=== PATIENT | male | born 1955 | race Two or more races ===

== ENCOUNTER 2017-02-06 17:22 | Inpatient (IN) | payer OTHER ==
[~2017-02-06] VITALS: Ht 175.3 cm; Wt 85.6 kg
[~2017-02-06 17:22] MED LIST: OMEP20CA16 PO; TAMS0.4C2 PO
[2017-02-06] MEDS ORDERED: ZOLPIDEM 5 MG TAB PO PRN (20:00)
[2017-02-06] MEDS ORDERED: NITROGLYCERIN (SL) 0.4 MG TAB SL PRN (20:00)
[2017-02-06 20:06] VITALS: PULSE 65
[2017-02-06 21:22] VITALS: Ht 175.3 cm; Wt 85.6 kg
[2017-02-06 23:54] VITALS: BP 107/67; RESP 18
[2017-02-07] VITALS (11 sets, daily range): BP systolic 89–106; BP diastolic 49–66; PULSE 60–65; RESP 18–20
[2017-02-07 07:06] LABS: CHOL/HDL RATIO 4.5 RATIO; CHOLESTEROL 158 mg/dl (100-200); HDL CHOLESTEROL 35 mg/dl (30-78); TRIGLYCERIDES 156 mg/dl (0-149)
[2017-02-07 07:19] LABS: TROPONIN-I < 0.012 ng/ml (0.00-0.12)
[2017-02-07 07:35] LABS: THYROID STIMULATING HORMONE 0.832 MIU/L (0.465-4.680)
[2017-02-07] MEDS: ENOXAPARIN 40 MG/0.4 ML SYG SC SCH (09:51)
--- NOTE | 2017-02-07 17:15 | HP ---
Date/Time of Note Date/Time of Note DATE: 02/07/17 TIME: 17:13 Assessment/Plan VTE Prophylaxis VTE Prophylaxis Intervention: LMWH Lines/Catheters IV Catheter Type (from [facility]): Saline Lock Urinary Cath still in place: No Assessment/Plan Assessment/Plan - Chest pain, assess for acute coronary syndrome. - per cardiology - FU troponins x3 - ECHO- result pending -telemetry monitoring - Episode of dizziness- none at present - Hypotension, borderline.- cont to monitor - Smoker -Smoking cessation - History of dyslipidemia. - Atorvastatin 20 mg po qhs - Benign prostatic hypertrophy. - sp right eye cataract sx 2014- no acute issues Furhet recommendations depend upon patient's clinical course,DW Dr VILLARREAL/ staff/daughter HPI/ROS Admit Date/Time Admit Date/Time February 06, 2017 at 19:32 Hx of Present Illness This patient, Mr. Romo is a 61-year-old male with a history of dyslipidemia , BPH and gastritis, who presents with complaints of substernal chest pain and dizziness after working out in a gym yesterday.The patient denies chest pain, shortness of breath, dizziness, fever, chills, abdominal pain. NVD. at this time. The patient denies any Hx myocardial infarction or CVA. Daughter at bed side- all Qs snswered ROS Constitutional: improved Eyes: no complaints ENT: no complaints Respiratory: no complaints Cardiovascular: no complaints Gastrointestinal: no complaints Genitourinary: no complaints PMH/Family/Social Past Medical History ALLERGIES: NO KNOWN DRUG ALLERGIES. Medical History: high cholesterol Family History Significant Family History: no pertinent family hx Social History Smoking Status: Current every day smoker Drug Use: none Exam/Review of Systems Vital Signs Vitals Vital Signs Date Time Temp Pulse Resp B/P Pulse Ox O2 Delivery O2 Flow Rate FiO2 02/07/17 16:12 63 02/07/17 16:08 98.0 18 96/66 98 Exam Constitutional: alert, oriented Psych: nl mood/affect Head: atraumatic Eyes: EOMI, nl sclera ENMT: nl external ears & nose Neck: supple Respiratory: clear to auscultation Cardiovascular: regular rate and rhythm Gastrointestinal: non-tender, soft Musculoskeletal: nl extremities to inspection Extremities: normal pulses Neurological: nl mental status, nl speech Skin: nl turgor Lymph: nontender Medications Medications Current Medications Acetaminophen (Tylenol Tab) 650 mg Q6H PRN PO PAIN AND OR ELEVATED TEMP; Start 02/06/17 at 20:00 Nitroglycerin (Nitroglycerin (Sl Tab) 0.4 Mg) 1 tab Q5M PRN SL ANGINA; Start at 20:00 Enoxaparin Sodium (Lovenox) 40 mg DAILY SC Last administered on 02/07/17 09:51 ; Admin Dose 40 MG; Start 02/07/17 at 09:00 Zolpidem Tartrate (Ambien) 5 mg HS PRN PO INSOMNIA; Start 02/06/17 at 20:00 SUSIE DAHL February 07, 2017 17:15 Acetaminophen (Tylenol Tab) 650 mg Q6H PRN PO PAIN AND OR ELEVATED TEMP; Start 02/06/17 at 20:00 Nitroglycerin (Nitroglycerin (Sl Tab) 0.4 Mg) 1 tab Q5M PRN SL ANGINA; Start at 20:00 Enoxaparin Sodium (Lovenox) 40 mg DAILY SC Last administered on 02/07/17 09:51 ; Admin Dose 40 MG; Start 02/07/17 at 09:00 Zolpidem Tartrate (Ambien) 5 mg HS PRN PO INSOMNIA; Start 02/06/17 at 20:00 SUSIE DAHL February 07, 2017 17:15
[2017-02-07] MEDS ORDERED: ONDANSETRON 4 MG INJ IV PRN (17:30)
--- NOTE | 2017-02-07 21:29 | RADRPT ---
Vent Rate: 59 bpm RR Interval: 0 msec [place] Interval: 168 msec QRS Duration: 106 msec QT Interval: 418 msec QTC Interval: 413 msec P-R-T [place]: 62 - 89 - 49 degrees Sinus bradycardia Incomplete right bundle branch block Borderline ECG Electronically Signed By: Rachid Valdes [id number]
--- NOTE | 2017-02-07 23:37 | CONS ---
DATE OF ADMISSION: 02/06/2017 DATE OF CONSULTATION: 02/07/2017 REASON FOR CONSULTATION: Chest pain, assess for acute coronary syndrome. REQUESTING PHYSICIAN: Jesse Pascual MD HISTORY OF PRESENT ILLNESS: Mr. Romo is a 61-year-old male with a history of dyslipidemia, BPH and gastritis, who presents with complaints of substernal chest pain and dizziness after working out . Initially upon arrival, temperature of 98, blood pressure 107/67, pulse 64, respiratory rate 18, saturation 97%. The patient's labs revealed a negative troponin, LDL of 92, HDL of 35. TSH 0.8. T he patient's electrocardiogram revealed sinus bradycardia at 59, normal axis, normal intervals, inco mplete right bundle branch block. The patient has been admitted to the floor, and since admitted to the floor he has had a second troponin return negative, for 2 negative troponins. The patient den ies ongoing chest pain at this time. The patient denies prior myocardial infarction or CVA. PAST MEDICAL HISTORY: As above in HPI. CURRENT MEDICATIONS: 1. Flomax 0.4 mg daily. 2. Sublingual nitroglycerin p.r.n. 3. Zofran p.r.n. 4. Lovenox 40 mg subQ daily. 5. Ambien p.r.n. ALLERGIES: NO KNOWN DRUG ALLERGIES. SOCIAL HISTORY: Positive tobacco. No ETOH or illicit drug use. FAMILY HISTORY: No history of sudden cardiac or early CAD. REVIEW OF SYSTEMS: As above in HPI. CONSTITUTIONAL: No fevers, chills. PULMONARY: Shortness of breath. CARDIOVASCULAR: Intermittent chest pain. GASTROINTESTINAL: No vomiting. GENITOURINARY: No hematuria. MUSCULOSKELETAL: Degenerative joint disease. PSYCHIATRIC: The patient denies depression. NEUROLOGIC: No documented history of CVA. ENDOCRINE: No documented history of diabetes mellitus. PHYSICAL EXAMINATION: VITAL SIGNS: Temperature of 98, blood pressure 94/59, pulse 64, respiratory rate 20, saturation 96% . GENERAL: The patient is alert, awake, in no acute distress. NECK: JVP approximately water. CHEST: Fair air movement throughout. HEART: Regular rate and rhythm. Normal S1, S2, I/ systolic murmur, nondisplaced PMI. ABDOMEN: Positive bowel sounds, soft. EXTREMITIES: No edema, 1+ pulses bilaterally, posterior tibial. LABORATORY DATA: As above in HPI. No further labs for my review at this time. IMAGING STUDIES: As above in HPI. No further imaging studies for my review at this time. ECG: As above in HPI. No further electrocardiograms for my review at this time. IMPRESSION: 1. Chest pain, assess for acute coronary syndrome. 2. Abnormal electrocardiogram, assess for acute coronary syndrome. 3. Hypotension, borderline. 4. History of dyslipidemia. 5. Ongoing tobacco usage. 6. Episode of dizziness. 7. Benign prostatic hypertrophy. RECOMMENDATIONS: 1. At this time would maintain the patient on telemetry monitoring to follow rhythm and rate contro l closely. 2. Would complete the patient's rule out for myocardial infarction, send final troponin. 3. We will follow the patient's 2D echo done for assessment of ejection fraction, wall motion and a ny major valve abnormalities. 4. Would resume the patient's baseline likely low dose statin therapy. 5. If the patient does rule out for myocardial infarction, I believe given this patient's presentat ion, that he will further benefit from inpatient risk stratification with cardiac stress test which thus can be scheduled to take place first thing in the morning. 6. Continue to follow the patient's blood pressure closely with possible need for any IV fluid hydr ation and/or pressors. Thank you for allowing me to take part in the care of this patient. I will continue to follow along very closely with you. Further recommendations will be made as the patient progresses through his inpatient hospital clinical course. Dictated By: KIMBERLY MIRELES/LALA Conf#: [id number] DID#: [id number] CC: JESSE PASCUAL MD;*End*
[2017-02-08] VITALS (13 sets, daily range): BP systolic 90–119; BP diastolic 50–69; PULSE 60–75; RESP 17–20
--- NOTE | 2017-02-08 06:34 | RADRPT ---
PROCEDURE: XR Chest. CLINICAL INDICATION: Cardiomyopathy TECHNIQUE: PA and lateral views of the chest were obtained. COMPARISON: None. FINDINGS: The lungs are hyperinflated. No focal airspace opacification, pleural effusion or pneumothorax is s een. The cardiomediastinal silhouette is within normal limits for size. There is a rounded right pa raspinal density near the diaphragm. The osseous structures are unremarkable. IMPRESSION: 1. Hyperinflation of the lungs. No radiographic evidence of acute cardiopulmonary disease. 2. Rounded right paraspinal density at the level of the diaphragm. This is not further localized o n the lateral view. Consider CT of the chest for further evaluation. RPTAT: HH .Chana Rueda MD, MD Date Time Electronically viewed and signed by .Chana Rueda MD, on 02/08/2017 06:33 .G/
[2017-02-08 07:24] LABS: ADD SCAN DIFF NO
[2017-02-08 07:53] LABS: IRON 78 ug/dl (35-150)
[2017-02-08 07:58] LABS: ALBUMIN 3.9 g/dl (3.3-4.9); ALBUMIN/GLOBULIN RATIO 1.18; BILIRUBIN,INDIRECT 0.4 mg/dl (0-1.1); BILIRUBIN,TOTAL 0.4 mg/dl (0.2-1.3); CHOL/HDL RATIO 4.4 RATIO; CREATININE 1.09 mg/dl (0.61-1.24); POTASSIUM 4.5 mmol/L (3.5-5.1); TOTAL PROTEIN 7.2 g/dl (6.1-8.1)
[2017-02-08 08:02] LABS: TOTAL IRON BINDING CAPACITY 337 ug/dl (241-421)
[2017-02-08 08:26] LABS: THYROID STIMULATING HORMONE 1.85 MIU/L (0.465-4.680)
[2017-02-08] MEDS: TAMSULOSIN (SR) 0.4 MG CAP PO SCH (09:25)
[2017-02-08] MEDS: ENOXAPARIN 40 MG/0.4 ML SYG SC SCH (09:26)
[2017-02-08 10:07] LABS: BASOPHILS % 0.5 % (0.0-2.0); EOSINOPHILS # 0.4 10^3/ul (0.0-0.5); EOSINOPHILS % 5.1 % (0.0-7.0); HEMOGLOBIN 14.9 g/dl (14.0-18.0); LYMPHOCYTES # 2.4 10^3/ul (0.8-2.9); LYMPHOCYTES % 27.8 % (15.0-51.0); MEAN CORPUSCULAR HEMOGLOBIN 32.7 pg (29.0-33.0); MEAN CORPUSCULAR HGB CONC 34.7 g/dl (32.0-37.0); MEAN CORPUSCULAR VOLUME 94.5 fl (82.0-101.0); MEAN PLATELET VOLUME 9.9 fl (7.4-10.4); MONOCYTE # 0.8 10^3/ul (0.3-0.9); MONOCYTES % 9.7 % (0.0-11.0); NEUTROPHIL # 4.8 10^3/ul (1.6-7.5); NEUTROPHILS % 56.2 % (39.0-77.0); PLATELET COUNT 289 10^3/UL (140-415); RED BLOOD COUNT 4.55 10^6/ul (4.70-6.10); RED CELL DISTRIBUTION WIDTH 13.2 % (11.5-14.5); WHITE BLOOD COUNT 8.6 10^3/ul (4.8-10.8)
[2017-02-08] MEDS ORDERED: REGADENOSON 0.4 MG/5 ML SYG ONE (10:33)
--- NOTE | 2017-02-08 11:41 | CONS ---
Date/Time of Note Date/Time of Note DATE: 02/08/17 TIME: 11:36 Assessment/Plan Assessment/Plan Chief Complaint/Hosp Course IMPRESSION: 1. Chest pain, assess for acute coronary syndrome.-negative trop x 3 2. Abnormal electrocardiogram, assess for acute coronary syndrome. 3. Hypotension, borderline. 4. History of dyslipidemia. 5. Ongoing tobacco usage. 6. Episode of dizziness. 7. Benign prostatic hypertrophy. Recc: -Tele -serial ecg's -Continue statin -PRN SL NTG -Lexiscan stress test today Problems: Consultation Date/Type/Reason Admit Date/Time February 06, 2017 at 19:32 Initial Consult Date 02/07/2017 Type of Consultation: Cardiology Reason for Consultation Chest pain Referring Provider: MARJAN ESPINOZA MD Exam/Review of Systems Vital Signs Vitals Vital Signs Date Time Temp Pulse Resp B/P Pulse Ox O2 Delivery O2 Flow Rate FiO2 02/08/17 08:00 60 02/08/17 07:16 97.8 17 104/69 95 02/08/17 04:39 Room Air Intake and Output 02/07/17 02/07/17 02/08/17 15:00 23:00 07:00 Intake Total 250 ml 900 ml 300 ml Balance 250 ml 900 ml 300 ml Exam Review of Systems: CONSTITUTIONAL: No fevers, chills. PULMONARY: No sob CARDIOVASCULAR: No chest pain/palpitations GASTROINTESTINAL: No nausea/vomiting. GENITOURINARY: No hematuria/dysuria. MUSCULOSKELETAL: No myagias/arthalgias. PSYCHIATRIC: The patient denies depression. NEUROLOGIC: No weakness Constitutional: alert Psych: no complaints Head: normocephalic ENMT: mucosa pink and moist Neck: jvd (9 cm water), supple Respiratory: clear to auscultation Cardiovascular: regular rate and rhythm Gastrointestinal: non-tender, soft Musculoskeletal: muscle tone (normal) Extremities: edema (none) Neurological: other (No focal deficits) Results Result Diagram: 02/08/17 0631 02/08/17 0631 Results 24 hrs Laboratory Tests Test 02/07/17 18:13 02/08/17 00:45 02/08/17 06:31 02/08/17 06:58 Troponin I < 0.012 < 0.012 < 0.012 White Blood Count 8.6 Red Blood Count 4.55 L Hemoglobin 14.9 Hematocrit 43.0 Mean Corpuscular Volume 94.5 Mean Corpuscular Hemoglobin 32.7 Mean Corpuscular Hemoglobin Concent 34.7 Red Cell Distribution Width 13.2 Platelet Count 289 Mean Platelet Volume 9.9 Neutrophils % 56.2 Lymphocytes % 27.8 Monocytes % 9.7 Eosinophils % 5.1 Basophils % 0.5 Nucleated Red Blood Cells % 0.0 Neutrophils # 4.8 Lymphocytes # 2.4 Monocytes # 0.8 Eosinophils # 0.4 Basophils # 0.0 Nucleated Red Blood Cells # 0.0 Sodium Level 136 Potassium Level 4.5 Chloride Level 105 Carbon Dioxide Level 26 Anion Gap 10 Blood Urea Nitrogen 22 H Creatinine 1.09 Glucose Level 102 Calcium Level 9.0 Phosphorus Level 4.0 Magnesium Level 2.0 Total Bilirubin 0.4 Direct Bilirubin 0.00 Indirect Bilirubin 0.4 Aspartate Amino Transf (AST/SGOT) 29 Alanine Aminotransferase (ALT/SGPT) 36 Alkaline Phosphatase 80 Total Protein 7.2 Albumin 3.9 Globulin 3.30 H Albumin/Globulin Ratio 1.18 Triglycerides Level 112 Cholesterol Level 179 LDL Cholesterol, Calculated 117 HDL Cholesterol 40 Cholesterol/HDL Ratio 4.4 Thyroid Stimulating Hormone (TSH) 1.850 Hemoglobin A1c 5.9 Iron Level 78 Total Iron Binding Capacity 337 Percent Iron Saturation 23 Medications Medications Current Medications Acetaminophen (Tylenol Tab) 650 mg Q6H PRN PO PAIN AND OR ELEVATED TEMP; Start 02/06/17 at 20:00 Nitroglycerin (Nitroglycerin (Sl Tab) 0.4 Mg) 1 tab Q5M PRN SL ANGINA; Start at 20:00 Enoxaparin Sodium (Lovenox) 40 mg DAILY SC Last administered on 02/08/17 09:26 ; Admin Dose 40 MG; Start 02/07/17 at 09:00 Zolpidem Tartrate (Ambien) 5 mg HS PRN PO INSOMNIA; Start 02/06/17 at 20:00 Tamsulosin HCl (Flomax) 0.4 mg DAILY PO Last administered on 02/08/17 09:25; Admin Dose 0.4 MG; Start 02/08/17 at 09:00 Ondansetron HCl (Zofran Inj) 4 mg Q4H PRN IV NAUSEA AND/OR VOMITING; Start at 17:30 Atorvastatin Calcium (Lipitor) 20 mg HS PO ; Start 02/08/17 at 21:00 KIMBERLY CHEUNG February 08, 2017 11:40
--- NOTE | 2017-02-08 12:35 | PN ---
Date/Time of Note Date/Time of Note DATE: 02/08/17 TIME: 12:33 Assessment/Plan VTE Prophylaxis VTE Prophylaxis Intervention: SCD's Lines/Catheters IV [facility] Saline Lock Urinary Cath still in place: No Assessment/Plan Assessment/Plan 1. Chest pain, assess for acute coronary syndrome.-negative trop x 3 2. Abnormal electrocardiogram, assess for acute coronary syndrome. 3. Hypotension, borderline. 4. History of dyslipidemia. 5. Ongoing tobacco usage. 6. Episode of dizziness. 7. Benign prostatic hypertrophy. Subjective 24 Hr Interval Summary Free Text/Dictation Pt went to nuclear medicine for stress test, no acute events reported prior to procedure. Exam/Review of Systems Vital Signs Vitals Vital Signs Date Time Temp Pulse Resp B/P Pulse Ox O2 Delivery O2 Flow Rate FiO2 02/08/17 08:00 60 02/08/17 07:16 97.8 17 104/69 95 02/08/17 04:39 Room Air Intake and Output 02/07/17 02/07/17 02/08/17 15:00 23:00 07:00 Intake Total 250 ml 900 ml 300 ml Balance 250 ml 900 ml 300 ml Results Result Diagram: 02/08/17 0631 02/08/17 0631 Results 24 hrs Laboratory Tests Test 02/07/17 18:13 02/08/17 00:45 02/08/17 06:31 02/08/17 06:58 Troponin I < 0.012 < 0.012 < 0.012 White Blood Count 8.6 Red Blood Count 4.55 L Hemoglobin 14.9 Hematocrit 43.0 Mean Corpuscular Volume 94.5 Mean Corpuscular Hemoglobin 32.7 Mean Corpuscular Hemoglobin Concent 34.7 Red Cell Distribution Width 13.2 Platelet Count 289 Mean Platelet Volume 9.9 Neutrophils % 56.2 Lymphocytes % 27.8 Monocytes % 9.7 Eosinophils % 5.1 Basophils % 0.5 Nucleated Red Blood Cells % 0.0 Neutrophils # 4.8 Lymphocytes # 2.4 Monocytes # 0.8 Eosinophils # 0.4 Basophils # 0.0 Nucleated Red Blood Cells # 0.0 Sodium Level 136 Potassium Level 4.5 Chloride Level 105 Carbon Dioxide Level 26 Anion Gap 10 Blood Urea Nitrogen 22 H Creatinine 1.09 Glucose Level 102 Calcium Level 9.0 Phosphorus Level 4.0 Magnesium Level 2.0 Total Bilirubin 0.4 Direct Bilirubin 0.00 Indirect Bilirubin 0.4 Aspartate Amino Transf (AST/SGOT) 29 Alanine Aminotransferase (ALT/SGPT) 36 Alkaline Phosphatase 80 Total Protein 7.2 Albumin 3.9 Globulin 3.30 H Albumin/Globulin Ratio 1.18 Triglycerides Level 112 Cholesterol Level 179 LDL Cholesterol, Calculated 117 HDL Cholesterol 40 Cholesterol/HDL Ratio 4.4 Thyroid Stimulating Hormone (TSH) 1.850 Hemoglobin A1c 5.9 Iron Level 78 Total Iron Binding Capacity 337 Percent Iron Saturation 23 Medications Medications Current Medications Acetaminophen (Tylenol Tab) 650 mg Q6H PRN PO PAIN AND OR ELEVATED TEMP; Start 02/06/17 at 20:00 Nitroglycerin (Nitroglycerin (Sl Tab) 0.4 Mg) 1 tab Q5M PRN SL ANGINA; Start at 20:00 Enoxaparin Sodium (Lovenox) 40 mg DAILY SC Last administered on 02/08/17 09:26 ; Admin Dose 40 MG; Start 02/07/17 at 09:00 Zolpidem Tartrate (Ambien) 5 mg HS PRN PO INSOMNIA; Start 02/06/17 at 20:00 Tamsulosin HCl (Flomax) 0.4 mg DAILY PO Last administered on 02/08/17 09:25; Admin Dose 0.4 MG; Start 02/08/17 at 09:00 Ondansetron HCl (Zofran Inj) 4 mg Q4H PRN IV NAUSEA AND/OR VOMITING; Start at 17:30 Atorvastatin Calcium (Lipitor) 20 mg HS PO ; Start 02/08/17 at 21:00 SEYMOUR NORRIS February 08, 2017 12:35
--- NOTE | 2017-02-08 12:41 | CARRPT ---
DATE OF PROCEDURE: 02/08/2017 PROCEDURE: Lexiscan Cardiolite stress test. REASON FOR STRESS TESTING: Chest pain, assess for ischemia. BASELINE VITAL SIGNS AND ELECTROCARDIOGRAM: Pulse 68, blood pressure 110/69. Electrocardiogram rev eals sinus bradycardia, rate 56 with an incomplete right bundle branch block, secondary repolarizati on abnormalities. PROCEDURE: The patient underwent standard Lexiscan infusion protocol over 10 seconds followed by ra diolabel tracer. The patient's test was stopped due to completion of protocol. Maximal achieved bl ood pressure during the test 113/65. Maximal heart rate during the test 73. ELECTROCARDIOGRAM FINDINGS: The patient did not develop any new Lexiscan-induced ST or T-wave roldan es from baseline abnormalities. No documented PVCs. SYMPTOMS: The patient had slight chest pain and shortness of breath during stress test that resolve d in recovery. IMPRESSION: 1. No Lexiscan-induced ST or T-wave changes from baseline abnormalities or diagnostic cardiac ische shelbi. 2. Complaints of chest pain and shortness of breath, which resolved in recovery. 3. No documented premature ventricular contractions during stress test. 4. Report of nuclear images to follow in separate dictation. Dictated By: KIMBERLY MIRELES/LALA Conf#: [id number] DID#: [id number] CC: MARJAN ESPINOZA MD;*EndCC*
--- NOTE | 2017-02-08 17:04 | RADRPT ---
PROCEDURE: Nuclear medicine myocardial perfusion scan CLINICAL INDICATION: Chest pain TECHNIQUE: 30.9 mCi of technetium 99m Cardiolite was administered for the stress study. 10.7 mCi of technetium 99m Cardiolite was administered for the resting study. The patient was stressed with 0 .4 mg of Lexiscan. Images were reviewed in the short axis, vertical long axis, and horizontal long axis views. Wall motion was assessed and ejection fraction was calculated as well. Images were revi ewed on a high-resolution PACS workstation. COMPARISON: None available FINDINGS: Left ventricular size is within normal limits. The stress tomographic images demonstrate a normal pattern of perfusion. The resting tomographic images demonstrate a similar pattern. There is no ev idence for reversible ischemia. Wall motion is normal. The ejection fraction is calculated at 62%. IMPRESSION: 1. Negative myocardial perfusion scan. 2. There is no evidence for reversible ischemia. 3. Normal wall motion with normal ejection fraction of 62%. RPTAT: [facility] Physician Hussain Date Time Electronically viewed and signed by Physician Hussain on 02/08/2017 17:03 /
--- NOTE | 2017-02-08 19:31 | RADRPT ---
Vent Rate: 63 bpm RR Interval: 0 msec [place] Interval: 168 msec QRS Duration: 104 msec QT Interval: 398 msec QTC Interval: 407 msec P-R-T [place]: 74 - 101 - 77 degrees Normal sinus rhythm Incomplete right bundle branch block Possible Right ventricular hypertrophy Abnormal ECG Electronically Signed By: Rachid Valdes [id number]
[2017-02-08] MEDS ORDERED: ATORVASTATIN 20 MG TAB PO SCH (21:00)
[2017-02-08] MEDS: ACETAMINOPHEN 325 MG TAB PO PRN (21:05)
[2017-02-09] VITALS (9 sets, daily range): BP systolic 96–103; BP diastolic 52–65; PULSE 61–72; RESP 16–20
[2017-02-09] MEDS: TAMSULOSIN (SR) 0.4 MG CAP PO SCH (08:28)
[2017-02-09] MEDS: ENOXAPARIN 40 MG/0.4 ML SYG SC SCH (08:30)
--- NOTE | 2017-02-09 13:28 | CONS ---
Date/Time of Note Date/Time of Note DATE: 02/09/17 TIME: 13:26 Assessment/Plan Assessment/Plan Additional Assessment/Plan 1. Atypical Chest pain 2. Abnormal electrocardiogram 3. Hypotension 4. Dyslipidemia. 5. Tobacco use.. 6. Benign prostatic hypertrophy. Stress test no reversible ischemia BP low Avoid av Mason Blockers Continue Lipitor Continue GI and DVT Prophylaxis Consultation Date/Type/Reason Admit Date/Time February 06, 2017 at 19:32 Eyes: no complaints ENT: no complaints Respiratory: no complaints Cardiovascular: no complaints Gastrointestinal: no complaints Genitourinary: no complaints Psychological: no complaints Past Medical History Medical History: high cholesterol Social History Smoking Status: Current every day smoker Drug Use: none Exam/Review of Systems Vital Signs Vitals Vital Signs Date Time Temp Pulse Resp B/P Pulse Ox O2 Delivery O2 Flow Rate FiO2 02/09/17 12:11 72 02/09/17 11:39 98.4 16 103/65 95 02/08/17 04:39 Room Air Intake and Output 02/08/17 02/08/17 02/09/17 15:00 23:00 07:00 Intake Total 500 ml 650 ml Balance 500 ml 650 ml Exam Constitutional: alert, oriented Neck: non-tender, supple Respiratory: clear to auscultation Cardiovascular: regular rate and rhythm Gastrointestinal: nl liver, spleen, non-tender, soft Extremities: normal pulses Results Result Diagram: 02/08/1763002/08/1731 Results 24 hrs Laboratory Tests Test 02/08/17 16:49 Lab Scanned Report REFERENCE LAB Medications Medications Current Medications Acetaminophen (Tylenol Tab) 650 mg Q6H PRN PO PAIN AND OR ELEVATED TEMP Last administered on 02/08/17 21:05; Admin Dose 650 MG; Start 02/06/17 at 20:00 Nitroglycerin (Nitroglycerin (Sl Tab) 0.4 Mg) 1 tab Q5M PRN SL ANGINA; Start at 20:00 Enoxaparin Sodium (Lovenox) 40 mg DAILY SC Last administered on 02/08/17 09:26 ; Admin Dose 40 MG; Start 02/07/17 at 09:00 Zolpidem Tartrate (Ambien) 5 mg HS PRN PO INSOMNIA; Start 02/06/17 at 20:00 Tamsulosin HCl (Flomax) 0.4 mg DAILY PO Last administered on 02/09/17 08:28; Admin Dose 0.4 MG; Start 02/08/17 at 09:00 Ondansetron HCl (Zofran Inj) 4 mg Q4H PRN IV NAUSEA AND/OR VOMITING; Start at 17:30 Atorvastatin Calcium (Lipitor) 20 mg HS PO Last administered on 02/08/17 21:09 ; Admin Dose 20 MG; Start 02/08/17 at 21:00 PATTY TERRY M.D. February 09, 2017 13:28
[2017-02-09] MEDS: ACETAMINOPHEN 325 MG TAB PO PRN (16:30)
--- NOTE | 2017-02-09 16:50 | PDOCDIS ---
Discharge Instructions CONDITION Patient Condition: Stable HOME CARE INSTRUCTIONS: Diet Instructions: Low Fat /Cholesterol ACTIVITY: Activity Restrictions: Slowly Increase Activity Rest between Activity Avoid heavy lifting Do not operate Machinery Avoid Heavy Housework Bathing Restrictions: Sponge Bath FOLLOW UP/APPOINTMENTS Appointments FU with primary MD X 1 week FU with cardiology as recommended Call 911 or go to the nearest hospital if symptoms get worse. Plan dw Dr Gunderson/staff/patient SUSIE DAHL February 09, 2017 16:50
[2017-02-09] MEDS ORDERED: ATOR20TA65 PO (16:51)
--- NOTE | 2017-02-09 16:52 | DS ---
Date/Time of Note Date/Time of Note DATE: 02/09/17 TIME: 16:52 Discharge Summary Admission/Discharge Info Admit Date/Time February 06, 2017 at 19:32 Discharge Date/Time Hx of Present Illness This patient, Mr. Romo is a 61-year-old male with a history of dyslipidemia , BPH and gastritis, who presents with complaints of substernal chest pain and dizziness after working out in a gym yesterday.The patient denies chest pain, shortness of breath, dizziness, fever, chills, abdominal pain. NVD. at this time. The patient denies any Hx myocardial infarction or CVA. Daughter at bed side- all Qs snswered Hospital Course IMPRESSION: 1. Chest pain, assess for acute coronary syndrome.-negative trop x 3 2. Abnormal electrocardiogram, assess for acute coronary syndrome. 3. Hypotension, borderline. 4. History of dyslipidemia. 5. Ongoing tobacco usage. 6. Episode of dizziness. 7. Benign prostatic hypertrophy. Recc: -Tele -serial ecg's -Continue statin -PRN SL NTG -Lexiscan stress test today Home Meds Active Scripts Atorvastatin Calcium (Atorvastatin Calcium) 20 Mg Tablet, 20 MG PO HS for 30 Days, TAB Prov:SUSIE DAHL 02/09/17 Reported Medications Omeprazole* (Omeprazole*) 20 Mg Capsule.dr, 20 MG PO DAILY, #30 CAP 05/11/16 Tamsulosin Hcl* (Tamsulosin Hcl*) 0.4 Mg Cap.er.24h, 0.4 MG PO DAILY, CAP 05/11/16 Primary Care Provider Care Physician No Primary SUSIE DAHL February 09, 2017 16:52
== END 2017-02-09 17:50 | disposition home or self-care (01) | DRG 313 ==
LOC: UNDOADMIN 17:22 → L-D 17:22 → MS4 19:32
PROVIDERS: ADMIT Internal Medicine; ATTEND Internal Medicine
DX: R07.89 Other chest pain (principal); I95.9 Hypotension, unspecified; F17.200 Nicotine dependence, unspecified, uncomplicated; R42 Dizziness and giddiness; N40.0 Benign prostatic hyperplasia without lower urinary tract symptoms; R94.31 Abnormal electrocardiogram [ECG] [EKG]; R73.9 Hyperglycemia, unspecified
CPT/HCPCS: 71020; 78452; 80053; 80061; 83036; 83540; 83735; 84100; 84443; 84484; 85025; 93005; 93017; 93306; A9500; A9505; J1650; J2785

== ENCOUNTER 2018-03-04 09:58 | Day surgery (SDC) | END 2018-03-04 16:57 | disposition home or self-care (01) ==